=== PATIENT | female | born 1960 | race Caucasian/White ===

== ENCOUNTER 2018-03-21 15:17 | Outpatient (CLI) | payer OTHER | END 2018-03-21 20:32 | disposition home or self-care (01) | LOC: SMA 15:17 | PROVIDERS: ATTEND Family Medicine | DX: Z12.31 Encounter for screening mammogram for malignant neoplasm of breast (principal) | CPT/HCPCS: 77067 ==

== ENCOUNTER 2020-01-15 08:40 | Outpatient (CLI) | payer OTHER | END 2020-01-15 21:06 | disposition home or self-care (01) | LOC: SMA 08:40 | PROVIDERS: ATTEND Family Medicine | DX: Z12.31 Encounter for screening mammogram for malignant neoplasm of breast (principal) | CPT/HCPCS: 77067 ==

== ENCOUNTER 2023-04-06 12:44 | Emergency (ER) | payer OTHER ==
[~2023-04-06] VITALS: Ht 162.6 cm; Wt 136.1 kg
[2023-04-06 12:55] VITALS: BP_SYST 94; PULSE 73; RESP 18; TEMP 97.3; O2SAT 96
[2023-04-06 15:12] LABS: BASOPHILS # (AUTO) 0.1 K/uL (0.0-0.2); BASOPHILS % (AUTO) 0.7 % (0.0-2.0); EOSINOPHILS # (AUTO) 0.2 K/uL (0.0-0.4); HEMATOCRIT 38.4 % (36-48); LYMPHOCYTES # (AUTO) 1.9 K/uL (1.0-5.5); LYMPHOCYTES % (AUTO) 22.9 % (20.5-51.5); MEAN CORPUSCULAR HEMOGLOBIN 31 pg (27-31); MEAN CORPUSCULAR HGB CONC 34 % (32-36); MEAN CORPUSCULAR VOLUME 93 fL (79.0-98.0); MONOCYTES # (AUTO) 0.9 K/uL (0.0-1.0); MONOCYTES % (AUTO) 11.7 % (1.7-9.3); NEUTROPHILS # (AUTO) 5.1 K/uL (1.8-7.7); NEUTROPHILS % (AUTO) 62.7 % (40.0-70.0); PLATELET COUNT (AUTO) 227 K/uL (130-430); RED BLOOD CELL COUNT(AUTO) 4.15 MIL/uL (4.2-6.2); RED CELL DISTRIBUTION WIDTH 14.6 % (9.0-15.0); WHITE BLOOD COUNT (AUTO) 8.1 K/uL (4.8-10.8)
[2023-04-06 15:14] LABS: ERYTHROCYTE SEDIMENTATION RATE 82 MM/HR (0-20)
[2023-04-06 15:16] LABS: ANION GAP 8 (5-15); CALCIUM 9.4 mg/dL (8.4-11.0); CARBON DIOXIDE 29 mmol/L (23-29); CHLORIDE 104 mmol/L (98-107); CREATININE 0.96 mg/dL (0.55-1.30); GFR AFRICAN AMERICAN 75 mL/min (>90); GLUCOSE 96 mg/dL (74-106); POTASSIUM 4.1 mmol/L (3.5-5.1); SODIUM SERUM 141 mmol/L (136-145); UREA NITROGEN, BLOOD 22 mg/dL (8-21)
[2023-04-06 15:19] LABS: GFR NON AFRICAN-AMERICAN 62 mL/min (>90)
[2023-04-06 16:12] VITALS: BP_SYST 105; PULSE 75; RESP 18; TEMP 98.6; O2SAT 97
== END 2023-04-06 16:00 | disposition home or self-care (01) ==
LOC: SED 12:44
DX: M79.672 Pain in left foot (principal); R53.1 Weakness; R20.2 Paresthesia of skin; I10 Essential (primary) hypertension; E78.5 Hyperlipidemia, unspecified; Z87.39 Personal history of other diseases of the musculoskeletal system and connective tissue; Z79.899 Other long term (current) drug therapy
CPT/HCPCS: 36415; 70450-TC; 71045; 72125-TC; 76376; 80048; 83880; 84484; 85025; 85651-TC; 93005; 93971; 99285